=== PATIENT | male | born 1995 | race Hispanic/Latino ===

== ENCOUNTER 2025-03-09 10:25 | Emergency (ER) | payer SELFPAY | END 2025-03-09 11:05 | disposition home or self-care (01) | LOC: ERS 10:25 | DX: S01.01XD Laceration without foreign body of scalp, subsequent encounter (principal); Z00.00 Encounter for general adult medical examination without abnormal findings; X58.XXXD Exposure to other specified factors, subsequent encounter ==

== ENCOUNTER → 2025-03-16 | Emergency (ER) | payer SELFPAY | LOC: ERS 13:58 | DX: Z53.21 Procedure and treatment not carried out due to patient leaving prior to being seen by health care provider (principal) ==

== ENCOUNTER 2025-03-23 09:28 | Emergency (ER) | payer SELFPAY | END 2025-03-23 11:23 | disposition home or self-care (01) | LOC: ERS 09:28 | DX: S12.9XXA Fracture of neck, unspecified, initial encounter (principal); V89.2XXA Person injured in unspecified motor-vehicle accident, traffic, initial encounter | CPT/HCPCS: 72040; 99283 ==

== ENCOUNTER 2025-05-07 09:37 | Outpatient (CLI) | payer OTHER | END 2025-05-07 09:38 | disposition home or self-care (01) | LOC: RAD 09:37 | PROVIDERS: ATTEND Neurological Surgery | DX: S12.600D Unspecified displaced fracture of seventh cervical vertebra, subsequent encounter for fracture with routine healing (principal) | CPT/HCPCS: 72040 ==